=== PATIENT | female | born 1965 | race American Indian/Alaskan Native ===

== ENCOUNTER 2016-09-29 05:56 | Day surgery (SDC) | payer OTHER ==
--- NOTE | 2016-09-26 07:34 | Anesthesia Consultation ---
Anesthesia Consult and Med Hx - Airway Anesthetic Teeth Evaluation: Good, Caps (upper front), Crowns ROM Head & Neck: Adequate Mental/Hyoid Distance: Adequate Mallampati Class: Class II Intubation Access Assessment: Probably Good - Pulmonary Exam CTA: Yes - Cardiac Exam Cardiac Exam: RRR - Pre-Operative Health Status ASA Pre-Surgery Classification: ASA2 Proposed Anesthetic Plan: General - Pulmonary Hx Asthma: Yes (last treated 2015) - Cardiovascular System Hx Hypertension: Yes (x 10 yrs) - Central Nervous System Hx Neuromuscular Disorder: Yes (arthritis in right shoulder) Hx Psychiatric Problems: No - Other Systems Hx Alcohol Use: Yes (occas) Hx Cancer: No - Additional Comments Anesthesia Medical History Comments: NPO after MN. Hx of PONV.
[2016-09-26 07:58] LABS: Basophils % (Auto) 0.6 % (0.0-1.8); Eosinophils % (Auto) 2.3 % (0.0-4.3); Hematocrit 39.6 % (30.3-42.9); Mean Corpuscular HGB Conc 33 % (30-34); Mean Corpuscular Hemoglobin 27 pg (28-32); Mean Corpuscular Volume 80 fl (79-97); Platelet Count 284 K/mm3 (140-440); Red Blood Count 4.93 M/mm3 (3.65-5.03); White Blood Count 6.7 K/mm3 (4.5-11.0)
[2016-09-26 08:12] LABS: Alanine Aminotransferase 12 units/L (7-56); Albumin 3.9 g/dL (3.9-5); Albumin/Globulin Ratio 1.2 %; Alkaline Phosphatase 51 units/L (35-129); Anion Gap 15 mmol/L; BUN/Creatinine Ratio 21.66; Bilirubin,Total 0.4 mg/dL (0.1-1.2); Blood Urea Nitrogen 13 mg/dL (7-17); Calcium 9.1 mg/dL (8.4-10.2); Carbon Dioxide 26 mmol/L (22-30); Chloride 103.1 mmol/L (98-107); Glucose 110 mg/dL (65-100); Potassium 3.9 mmol/L (3.6-5.0); Sodium 140 mmol/L (137-145); Total Protein 7.1 g/dL (6.3-8.2)
[2016-09-29] MEDS ORDERED: TRANSDERM-SCOP TD NR (06:00)
[2016-09-29] MEDS ORDERED: VERSED IV NR (06:00)
[2016-09-29] MEDS ORDERED: NACL BACTERIOSTATIC INFILTRATI ONE (06:18)
[2016-09-29] MEDS: NACL 0.9% 1000 ML 1,000 ML IV SCH ×2 (06:35→10:20)
[2016-09-29] MEDS ORDERED: XYLOCAINE MPF 2% ONE ×2 (07:21→08:22)
[2016-09-29] MEDS ORDERED: DIPRIVAN 10 MG/ML IV ONE (07:21)
[2016-09-29] MEDS ORDERED: ZEMURON IV ONE ×2 (07:21→08:22)
[2016-09-29] MEDS ORDERED: DILAUDID IV PRN (07:23)
[2016-09-29] MEDS ORDERED: MARCAINE 0.5% 30 ML INFILTRATI ONE (07:23)
[2016-09-29] MEDS ORDERED: NORCO 5/325 PO PRN (07:23)
[2016-09-29] MEDS ORDERED: ZOFRAN IV PRN (07:23)
[2016-09-29] MEDS ORDERED: NEOSPORIN GU IR ONE (07:24)
--- NOTE | 2016-09-29 07:33 | Anesthesia Day of Surgery ---
Anesthesia Day of Surgery - Day of Surgery Patient Examined: Yes Patient H&P Reviewed: Yes Patient is NPO: Yes
[2016-09-29] MEDS ORDERED: CLEOCIN 900 MG/50 mL 900 MG/50 ML BAG IV NR (07:44)
[2016-09-29] MEDS ORDERED: GARAMYCIN/NS 100 MG/100 ML 100 MG/100 ML BAG IV NR (07:45)
[2016-09-29] MEDS ORDERED: PEPCID PO NR (08:00)
[2016-09-29] MEDS ORDERED: ROBINUL ONE ×2 (08:28→08:35)
[2016-09-29] MEDS ORDERED: NEOSTIGMINE ONE (08:36)
[2016-09-29] MEDS ORDERED: NACL 0.9% IR ONE (08:40)
[2016-09-29] MEDS ORDERED: MARCAINE 0.5% INFILTRATI ONE (08:40)
[2016-09-29] MEDS ORDERED: ZOFRAN ONE (08:41)
[2016-09-29] MEDS ORDERED: WATER FOR IRRIG STERILE IR ONE (09:04)
--- NOTE | 2016-09-29 09:07 | Short Stay Summary ---
Short Stay Documentation Date of service: 09/29/16 - History H&P: obtained from office - Allergies and Medications Current Medications: Allergies acetaminophen [From Darvocet-N] Allergy (Verified 09/24/16 16:08) dizziness, N&V codeine Allergy (Verified 09/26/16 08:25) Rash hydrocodone Allergy (Verified 09/24/16 16:08) dizziness, N&V latex Allergy (Verified 09/26/16 08:25) Rash morphine Allergy (Verified 09/26/16 08:25) Nausea oxycodone Allergy (Verified 09/26/16 08:25) N&V oxycodone HCl [From Percocet] Allergy (Verified 09/26/16 08:25) N&V Penicillins Allergy (Verified 09/26/16 08:25) N&V propoxyphene napsylate [From Darvocet-N] Allergy (Verified 09/24/16 16:08) dizziness, N&V tramadol Allergy (Verified 09/24/16 16:08) dizziness, N&V Home Medications Medication Instructions Recorded Confirmed Last Taken Type ALBUTEROL Inhaler [Proair] 2 puff IH QID PRN 09/24/16 09/29/16 1 Year Ago History Hydrochlorothiazide [Hctz] 12.5 mg PO QDAY 09/24/16 09/29/16 09/29/16 04:45 History Active Medications Acetaminophen/Hydrocodone Bitart ([place] 5/325) 2 each PO ONCE PRN PRN Reason: Pain, Moderate (4-6) Stop: 09/29/16 16:00 Famotidine (Pepcid) 20 mg PO PREOP NR Stop: 09/29/16 23:59 Last Admin: 09/29/16 06:45 Dose: 20 mg Hydromorphone HCl (Dilaudid) 0.5 mg IV Q10MIN PRN PRN Reason: Pain , Severe (7-10) Stop: 09/29/16 16:00 Sodium Chloride (Nacl 0.9% 1000 Ml) 1,000 mls @ 75 mls/hr IV DIRECT DENILSON Last Admin: 09/29/16 06:35 Dose: 75 mls/hr Clindamycin HCl (Cleocin 900 Mg/50 Ml) 900 mg in 50 mls @ 100 mls/hr IV ONCE NR PRN Reason: Protocol Stop: 09/29/16 16:00 Gentamicin Sulfate/Sodium Chloride (Garamycin/Ns 100 Mg/100 Ml) 100 mg in 100 mls @ 200 mls/hr IV ONCE NR Stop: 09/29/16 16:00 Midazolam HCl (Versed) 2 mg IV PREOP NR Stop: 09/29/16 23:59 Last Admin: 09/29/16 07:08 Dose: 2 mg Ondansetron HCl (Zofran) 4 mg IV ONCE PRN PRN Reason: Nausea And Vomiting Stop: 09/29/16 16:00 Scopolamine (Transderm-Scop) 1 each TD PREOP NR Stop: 10/02/16 05:59 Last Admin: 09/29/16 06:44 Dose: 1 each - Brief post op/procedure progress note Date of procedure: 09/29/16 Pre-op diagnosis: Pelvic pain, s/p prior KELVIN for fibroids, h/o cholecystectomy Post-op diagnosis: same (+omental and bowel adhesions) Procedure: EUA, diagnostic laparoscopy, GENESIS, cystoscopy Anesthesia: GETA Findings: surgically absent uterus. normal appearing bilateral ovaries. normal right tube. left tube not clearly visualized due to extensive sigmoid bowel adhesions but hydrosalpinx not visualized. normal appearing appendix. + omental and sigmoid bowel adhesions. on cytoscopy, she had areas of moderate trabeculations. No bladder lesions or masses. bilateral ureteral orifices visualized. Surgeon: LUIS LAMAR Estimated blood loss: minimal Condition: stable - Disposition Condition at discharge: Good Disposition: DISCHARGED TO HOME OR SELFCARE Short Stay Discharge Plan Follow up with: GIGI CAZARES MD [Primary Care Provider] - 7 Days
--- NOTE | 2016-09-29 09:42 | Post Anesthesia Evaluation ---
- Post Anesthesia Evaluation Patient Participated: Yes Airway Patent: Yes Stable Respiratory Function: Yes Temp > 96.8F: Yes Pain Manageable: Yes Adequeate Hydration: Yes Anesthesia Complications: No Block Receding Appropriately: Not Applicable
--- NOTE | 2016-09-29 09:53 | Operative Report ---
PREOPERATIVE DIAGNOSES: Chronic pelvic pain, status post prior KELVIN for fibroids, history of cholecystectomy. POSTOPERATIVE DIAGNOSES: Chronic pelvic pain, status post prior KELVIN for fibroids, history of cholecystectomy. She had omental and bowel adhesions. PROCEDURE: EUA, diagnostic laparoscopy, lysis of adhesions, cystoscopy. ANESTHESIA: General. FINDINGS: She had a surgically absent uterus. She had normal-appearing bilateral ovaries. She had normal-appearing right tube. Left tube was not clearly visualized due to extensive sigmoid bowel adhesions, but after partial resection of these adhesions, a hydrosalpinx on the left that was not visualized. She had a normal-appearing appendix. She had omental and sigmoid bowel adhesions. The sigmoid bowel adhesions were to the left pelvic sidewall over the retroperitoneal space. The omental adhesions to the anterior abdominal wall and to the left pelvic sidewall. On cystoscopy, she was noted to have areas of moderate trabeculations. There were no lesions or masses. Bilateral ureteral orifices were visualized, but no efflux was seen on either side. SURGEON: Aydee Cabrera MD TREE WORKER: Yi Lemus. ESTIMATED BLOOD LOSS: Minimal. CONDITION: Stable. INDICATIONS: The patient is a 51-year-old -[place] female with chronic pelvic pain since early 2014. Pelvic ultrasound from 10/2014 showed a surgically absent uterus, normal-sized bilateral ovaries and a small left ovarian follicle. She was told in the past That she had a hydrosalpinx. A GI evaluation to rule out a GI component to her pelvic pain was negative. Her colonoscopy was only remarkable for benign polyp. She has IBS, for which she is being managed with medication. She is status post a prior cholecystectomy. She is being brought to the operating room diagnostic laparoscopy, possible lysis of adhesions, possible bilateral salpingectomy, cystoscopy. DESCRIPTION OF PROCEDURE: The patient was brought to the operating room where general anesthesia was administered without difficulty. She was prepared and draped in usual sterile fashion, positioned in dorsal lithotomy position. Galan catheter was placed in the bladder. Attention was turned to the abdomen where a 5 mm optical trocar was placed in the left upper quadrant subcostal margin midclavicular line. Another 5 mm trocar was placed at the base of the umbilicus. Two additional 5 mm trocar was placed 8 cm to the left of the midline. Inside, the abdomen and pelvis was surveyed with the findings noted above. Lysis of omental and bowel adhesions was performed. No abnormal findings otherwise were noted. All instruments removed from the abdomen and pelvis. The incisions were closed in a subcuticular fashion using Monocryl suture and Dermabond was applied over the skin incisions. A diagnostic cystoscopy was then performed with findings as noted above. The scope was withdrawn and Galan catheter was reinserted. The patient tolerated the procedure well and was taken to the PACU awake in stable condition. JOB# [id number] FLR/DIAMOND
[2016-09-29 14:26] VITALS: BP 132/78
== END 2016-09-29 12:00 | disposition home or self-care (01) ==
LOC: OR 05:56
PROVIDERS: ATTEND Obstetrics & Gynecology Gynecology
DX: N73.6 Female pelvic peritoneal adhesions (postinfective) (principal); J45.909 Unspecified asthma, uncomplicated; I10 Essential (primary) hypertension; M19.011 Primary osteoarthritis, right shoulder; E66.9 Obesity, unspecified; Z68.32 Body mass index [BMI] 32.0-32.9, adult; Z90.49 Acquired absence of other specified parts of digestive tract; Z90.710 Acquired absence of both cervix and uterus; Z72.89 Other problems related to lifestyle
CPT/HCPCS: 36415; 49329; 52005; 80053; 85025; 86850; 86900; 86901; A4217; J1170; J1580; J2250; J2405; J2704; J2710; J7030

== ENCOUNTER 2021-03-12 17:55 | Emergency (ER) | payer OTHER ==
[2021-03-12 21:15] VITALS: BP 124/78
[2021-03-12] MEDS ORDERED: fentaNYL 100 MCG/2 ML INJ IV ONE (21:18)
[2021-03-12] MEDS ORDERED: ONDANSETRON 4 MG/2 ML INJ IV ONE (21:18)
--- NOTE | 2021-03-12 21:24 | Emergency Department Report ---
ED Abdominal Pain HPI - General Chief Complaint: Abdominal Pain Stated Complaint: L SIDE PAIN Source: patient Mode of arrival: Ambulatory Limitations: No Limitations - History of Present Illness Initial Comments: Patient is a 55-year-old -[place] female with a history of hypertension, asthma, GERD, migraine headaches and chronic osteoarthritis who presents to the ED with complaint of acute onset persistent severe left lower quadrant abdominal pain that radiates to the left flank and left low back with intermittent nausea and vomiting for the last 2 days. Patient states that the pain is especially worse with movement. Patient denies hematochezia, fever, chills, traumatic injury or fall, vaginal bleeding, vaginal discharge, dysuria, urinary frequency and urgency, hematuria, chest pain or shortness of breath, numbness and tingling or weakness of lower extremities bilaterally. MD Complaint: abdominal pain (LLQ pain), other (nausea, vomiting) -: Sudden, days(s) (2) Location: LLQ, L flank Radiation: L flank, back (left lower back) Migration to: no migration Severity: severe Severity scale (0 -10): 8 Quality: aching, sharp Consistency: constant Improves With: nothing Worsens With: movement Associated Symptoms: denies other symptoms, nausea, vomiting, anorexia. denies: diarrhea, fever, chills, constipation, dysuria, hematemesis, hematochezia, melena, hematuria, syncope - Related Data LMP (females 10-50): other (s/p Hysterectomy) Home Medications Medication Instructions Recorded Confirmed Last Taken Albuterol Mdi (or & Nicu Only) 2 puff IH QID PRN 09/24/16 09/29/16 1 Year Ago [Proair] ~09/30/15 hydroCHLOROthiazide [Hctz] 12.5 mg PO QDAY 09/24/16 09/29/16 09/29/16 04:45 Previous Rx's Medication Instructions Recorded Last Taken Type Baclofen 20 mg PO Q12H PRN #24 tablet 03/12/21 Unknown Rx Naproxen Sodium [Naproxen Sodium 550 mg PO Q12H PRN #30 tablet 03/12/21 Unknown Rx 550mg] Ondansetron [Zofran Odt] 4 mg PO Q8HR PRN #20 tab.rapdis 03/12/21 Unknown Rx traMADoL [Ultram] 50 mg PO Q6HR PRN #10 tablet 03/12/21 Unknown Rx Allergies Allergy/AdvReac Type Severity Reaction Status Date / Time acetaminophen Allergy dizziness, Verified 03/12/21 21:15 [From Darvocet-N] N&V codeine Allergy Rash Verified 03/12/21 21:15 hydrocodone Allergy dizziness, Verified 03/12/21 21:15 N&V latex Allergy Rash Verified 03/12/21 21:15 morphine Allergy Nausea Verified 03/12/21 21:15 oxycodone Allergy N&V Verified 03/12/21 21:15 oxycodone HCl [From Percocet] Allergy N&V Verified 03/12/21 21:15 Penicillins Allergy N&V Verified 03/12/21 21:15 propoxyphene napsylate Allergy dizziness, Verified 03/12/21 21:15 [From Darvocet-N] N&V tramadol Allergy dizziness, Verified 03/12/21 21:15 N&V ED Review of Systems ROS: Stated complaint: L SIDE PAIN Other details as noted in HPI Constitutional: denies: chills, fever Eyes: denies: eye pain, eye discharge, vision change ENT: denies: ear pain, throat pain Respiratory: denies: cough, shortness of breath, wheezing Cardiovascular: denies: chest pain, palpitations Endocrine: no symptoms reported Gastrointestinal: abdominal pain (Left lower quadrant abdominal pain that radiates to the left flank and low back), nausea. denies: diarrhea Genitourinary: denies: urgency, dysuria, discharge Musculoskeletal: back pain (Left low back pain). denies: joint swelling, arth ralgia Skin: denies: rash, lesions Neurological: denies: headache, weakness, paresthesias Psychiatric: denies: anxiety, depression Hematological/Lymphatic: denies: easy bleeding, easy bruising ED Past Medical Hx - Past Medical History Hx Hypertension: Yes (x 10 yrs) Hx GERD: Yes Hx Arthritis: Yes (back) Hx Headaches / Migraines: Yes (migraines) Hx Asthma: Yes (last treated 2015) Hx HIV: No - Surgical History Hx Cholecystectomy: Yes Hx Breast Surgery: Yes (biopsy) - Social History Smoking Status: Never Smoker - Medications Home Medications: Home Medications Medication Instructions Recorded Confirmed Last Taken Type Albuterol Mdi (or & Nicu Only) 2 puff IH QID PRN 09/24/16 09/29/16 1 Year Ago History [Proair] ~09/30/15 hydroCHLOROthiazide [Hctz] 12.5 mg PO QDAY 09/24/16 09/29/16 09/29/16 04:45 History Baclofen 20 mg PO Q12H PRN #24 tablet 03/12/21 Unknown Rx Naproxen Sodium [Naproxen Sodium 550 mg PO Q12H PRN #30 tablet 03/12/21 Unknown Rx 550mg] Ondansetron [Zofran Odt] 4 mg PO Q8HR PRN #20 tab.rapdis 03/12/21 Unknown Rx traMADoL [Ultram] 50 mg PO Q6HR PRN #10 tablet 03/12/21 Unknown Rx ED Physical Exam - General Limitations: No Limitations General appearance: alert, in no apparent distress - Head Head exam: Present: atraumatic, normocephalic, normal inspection - Eye Eye exam: Present: normal appearance, PERRL, EOMI Pupils: Present: normal accommodation - ENT ENT exam: Present: normal exam, normal orophraynx, mucous membranes moist, TM's normal bilaterally, normal external ear exam - Neck Neck exam: Present: normal inspection, full ROM - Respiratory Respiratory exam: Present: normal lung sounds bilaterally. Absent: respiratory distress, wheezes, rales, stridor, chest wall tenderness, accessory muscle use, decreased breath sounds, prolonged expiratory - Cardiovascular Cardiovascular Exam: Present: regular rate, normal rhythm, normal heart sounds. Absent: systolic murmur, diastolic murmur, rubs, gallop - GI/Abdominal GI/Abdominal exam: Present: soft, tenderness (Palpable left quadrant and left flank tenderness), guarding, normal bowel sounds. Absent: rebound, rigid, hyperactive bowel sounds, hypoactive bowel sounds, organomegaly - Extremities Exam Extremities exam: Present: normal inspection, full ROM, normal capillary refill - Back Exam Back exam: Present: normal inspection, full ROM, tenderness (Palpable lumbosacral paraspinal musculoskeletal and left CVA tenderness), CVA tenderness (L), muscle spasm, paraspinal tenderness. Absent: CVA tenderness (R), vertebral tenderness - Neurological Exam Neurological exam: Present: alert, oriented X3, CN II-XII intact, normal gait, r eflexes normal - Psychiatric Psychiatric exam: Present: normal affect, normal mood - Skin Skin exam: Present: warm, dry, intact, normal color. Absent: rash ED Course Vital Signs 03/12/21 03/12/21 21:14 21:15 Temperature 98.6 F Pulse Rate 61 Blood Pressure 124/78 O2 Sat by Pulse 100 Oximetry ED Medical Decision Making - Lab Data Result diagrams: 03/12/21 21:23 03/12/21 21:23 - Radiology Data Radiology results: report reviewed, image reviewed [facility] [address] [place] [address] Cat Scan Report Signed Patient: GIGI ROD MR#: [id number] : 1965 Acct:[id number] Age/Sex: 55 / F ADM Date: 03/12/21 Loc: ED Attending Dr: Ordering Physician: RAQUEL HELM Date of Service: 03/12/21 Procedure(s): CT abdomen pelvis w con Accession Number(s): [id number] cc: RAQUEL HELM CT ABDOMEN AND PELVIS WITH CONTRAST INDICATION / CLINICAL INFORMATION: Acute onset severe L.L.Q. abdominal pain. TECHNIQUE: Axial CT images were obtained through the abdomen and pelvis after IV contrast. All CT scans at this location are performed using CT dose reduction for ALARA by means of automated exposure control. COMPARISON: None available. FINDINGS: LOWER CHEST: No significant abnormality. LIVER: No significant abnormality. GALLBLADDER: Cholecystectomy. BILE DUCTS: Mild dilatation of the common bile duct, likely attributable to cholecystectomy status. PANCREAS: No significant abnormality. SPLEEN: No significant abnormality. ADRENALS: No significant abnormality. RIGHT KIDNEY / URETER: No significant abnormality. LEFT KIDNEY / URETER: No significant abnormality. STOMACH / SMALL BOWEL: No significant abnormality. COLON: No significant abnormality. APPENDIX: Nonvisualized. However, no pericecal inflammatory changes.. PERITONEUM: No free fluid. No free air. No fluid collection. LYMPH NODES: No significant adenopathy. AORTA / ARTERIES: No significant abnormality. IVC / VEINS: No significant abnormality. URINARY BLADDER: No significant abnormality. REPRODUCTIVE ORGANS: No significant abnormality. ADDITIONAL FINDINGS: None. SKELETAL SYSTEM: No significant abnormality. IMPRESSION: 1. No acute abnormality. Signer Name: Ankur Rendon MD Signed: 03/12/2021 10:55 PM Workstation Name: [id number] Transcribed By: SB Dictated By: ANKUR RENDON MD Electronically Authenticated By: ANKUR RENDON MD Signed Date/Time: 03/12/212254 DD/ 51 TD/TT: - Medical Decision Making This is a 55-year-old -[place] female with a history of hypertension, asthma, GERD, migraine headaches and chronic osteoarthritis who presents to the ED with complaint of acute onset persistent severe left lower quadrant abdominal pain that radiates to the left flank and left low back with intermittent nausea and vomiting for the last 2 days. Patient states that the pain is especially worse with movement. In the ED, patient is alert and oriented x3 and is not in any distress. Patient however appears to be in significant pain. Patient was treated for pain in the ED and also given normal saline 1 L IV bolus x1. All lab test results were reviewed and are all nonactionable. The abdomen pelvis CT scan with contrast showed no acute abnormalities. Therefore patient's symptoms are likely musculoskeletal muscle strain of the left inguinal and left lower abdominal muscle. On reevaluation, patient's pain is well controlled medication. Patient discharged home on pain medications and advised to follow- up with her primary care physician in 5 to 7 days for reevaluation. Patient was otherwise advised return to the ED immediately if symptoms get worse. - Differential Diagnosis Colitis; diverticulitis; kidney stone; UTI; pyelonephritis; muscle spasm Critical care attestation.: If time is entered above; I have spent that time in minutes in the direct care of this critically ill patient, excluding procedure time. ED Disposition Clinical Impression: Acute abdominal pain in left lower quadrant, Spasm of muscle of lower back Disposition: 01 HOME / SELF CARE / HOMELESS Is pt being admited?: No Does the pt Need Aspirin: No Condition: Stable Instructions: Abdominal Pain (ED), Muscle Cramps and Spasms, [id number], Flank Pain, Adult, [id number], Abdominal Pain, Adult, [id number] Additional Instructions: All lab test results were reviewed and are all nonactionable. Abdomen pelvis CT scan with contrast showed no acute abnormalities. Therefore your symptoms are likely musculoskeletal muscle strain or muscle spasm. Therefore take medication with food, drink plenty of fluids and follow-up with your primary care physician in 5 to 7 days for reevaluation. Return to the ED immediately if symptoms get worse. Prescriptions: Baclofen 20 mg PO Q12H PRN #24 tablet PRN Reason: Muscle Spasm Naproxen Sodium [Naproxen Sodium 550mg] 550 mg PO Q12H PRN #30 tablet PRN Reason: Pain , Severe (7-10) traMADoL [Ultram] 50 mg PO Q6HR PRN #10 tablet PRN Reason: Pain Ondansetron [Zofran Odt] 4 mg PO Q8HR PRN #20 tab.rapdis PRN Reason: Nausea Referrals: [facility] [Provider Group] - 3-5 Days Forms: Work/School Release Form(ED) Time of Disposition: 23:06 Print Language: NIUEAN
[2021-03-12 21:41] LABS: Basophils # (Auto) 0.1 K/mm3 (0.0-0.1); Basophils % (Auto) 0.9 % (0.0-1.8); Eosinophils # (Auto) 0.2 K/mm3 (0.0-0.4); Eosinophils % (Auto) 2.2 % (0.0-4.3); Lymphocytes # (Auto) 2.6 K/mm3 (1.2-5.4); Lymphocytes % (Auto) 37.7 % (13.4-35.0); Mean Corpuscular HGB Conc 33 % (30-34); Mean Corpuscular Volume 82 fl (79-97); Monocytes # (Auto) 0.5 K/mm3 (0.0-0.8); Monocytes % (Auto) 7.7 % (0.0-7.3); Platelet Count 309 K/mm3 (140-440); Red Blood Count 5.11 M/mm3 (3.65-5.03); Red Cell Distribution Width 14.7 % (13.2-15.2)
[2021-03-12 21:56] LABS: Alanine Aminotransferase 15 units/L (7-56); Albumin 4.3 g/dL (3.9-5); BUN/Creatinine Ratio 26; Blood Urea Nitrogen 21 mg/dL (7-17); Calcium 9.4 mg/dL (8.4-10.2); Hemolysis Index 11
[2021-03-12 22:04] LABS: Bilirubin,Urine NEG (Negative); Blood,Urine NEG (Negative); Color,Urine Yellow (Yellow); Mucus,Urine 3+ /HPF
--- NOTE | 2021-03-12 22:59 | Cat Scan Report ---
CT ABDOMEN AND PELVIS WITH CONTRAST INDICATION / CLINICAL INFORMATION: Acute onset severe L.L.Q. abdominal pain. TECHNIQUE: Axial CT images were obtained through the abdomen and pelvis after IV contrast. All CT sc ans at this location are performed using CT dose reduction for ALARA by means of automated exposure c ontrol. COMPARISON: None available. FINDINGS: LOWER CHEST: No significant abnormality. LIVER: No significant abnormality. GALLBLADDER: Cholecystectomy. BILE DUCTS: Mild dilatation of the common bile duct, likely attributable to cholecystectomy status. PANCREAS: No significant abnormality. SPLEEN: No significant abnormality. ADRENALS: No significant abnormality. RIGHT KIDNEY / URETER: No significant abnormality. LEFT KIDNEY / URETER: No significant abnormality. STOMACH / SMALL BOWEL: No significant abnormality. COLON: No significant abnormality. APPENDIX: Nonvisualized. However, no pericecal inflammatory changes.. PERITONEUM: No free fluid. No free air. No fluid collection. LYMPH NODES: No significant adenopathy. AORTA / ARTERIES: No significant abnormality. IVC / VEINS: No significant abnormality. URINARY BLADDER: No significant abnormality. REPRODUCTIVE ORGANS: No significant abnormality. ADDITIONAL FINDINGS: None. SKELETAL SYSTEM: No significant abnormality. IMPRESSION: 1. No acute abnormality. Signer Name: Ankur Minaya MD Signed: 03/12/2021 10:55 PM Workstation Name: [id number]
== END 2021-03-13 00:39 | disposition home or self-care (01) ==
LOC: ED 17:55
DX: R10.32 Left lower quadrant pain (principal); M62.830 Muscle spasm of back; I10 Essential (primary) hypertension; K21.9 Gastro-esophageal reflux disease without esophagitis; M19.90 Unspecified osteoarthritis, unspecified site; G43.909 Migraine, unspecified, not intractable, without status migrainosus; J45.909 Unspecified asthma, uncomplicated; Z98.890 Other specified postprocedural states; Z88.0 Allergy status to penicillin; Z88.5 Allergy status to narcotic agent; Z88.6 Allergy status to analgesic agent; Z91.040 Latex allergy status
CPT/HCPCS: 36415; 74177; 80053; 81001; 83690; 85025; 87086; 96374; 96375; 99284; J2405; J3010; Q9967